=== PATIENT | male | born 1995 | race Caucasian/White ===

== ENCOUNTER → 2017-01-19 | Outpatient (CLI) | payer OTHER | LOC: BMCIMAGING 14:24 | PROVIDERS: ATTEND Family Medicine | DX: S42.191A Fracture of other part of scapula, right shoulder, initial encounter for closed fracture (principal) ==

== ENCOUNTER → 2017-02-01 | Outpatient (CLI) | payer OTHER | LOC: BMCIMAGING 08:33 | PROVIDERS: ATTEND Physician Assistant | DX: S42.124D Nondisplaced fracture of acromial process, right shoulder, subsequent encounter for fracture with routine healing (principal) ==

== ENCOUNTER → 2017-03-01 | Outpatient (CLI) | payer OTHER | LOC: BMCIMAGING 08:12 | PROVIDERS: ATTEND Physician Assistant | DX: S42.101D Fracture of unspecified part of scapula, right shoulder, subsequent encounter for fracture with routine healing (principal) ==